=== PATIENT | male | born 1965 | race Caucasian/White ===

== ENCOUNTER 2018-04-17 16:17 | Emergency (ER) | payer SELFPAY ==
--- NOTE | 2018-04-17 16:37 | ER Document Report ---
ED Medical Screen (RME) - General Chief Complaint: Breathing Difficulty Stated Complaint: DIFFICULTY BREATHING Time Seen by Provider: 04/17/18 16:35 Mode of Arrival: Wheelchair Information source: Patient, Relative TRAVEL OUTSIDE OF THE [place] IN LAST 30 DAYS: No - HPI Patient complains to provider of: sob Onset: Other - pt with onset of sob and dyspnea for the past several days with exacerbation this am. Denies CP - Related Data Allergies/Adverse Reactions: No Known Allergies Allergy (Unverified 04/17/18 16:22) Physical Exam - Vital signs Vitals: Temp Pulse Resp BP Pulse Ox 97.8 F 109 H 32 H 121/80 95 04/17/18 16:23 04/17/18 16:23 04/17/18 16:23 04/17/18 16:23 04/17/18 16:23 Course - Vital Signs Vital signs: Temp Pulse Resp BP Pulse Ox 97.8 F 109 H 32 H 121/80 95 04/17/18 16:23 04/17/18 16:23 04/17/18 16:23 04/17/18 16:23 04/17/18 16:23
[2018-04-17 17:16] LABS: ABSOLUTE LYMPHOCYTES (AUTO) 0.9 10^3/uL (0.5-4.7); ABSOLUTE MONOCYTES (AUTO) 0.8 10^3/uL (0.1-1.4); BASOPHILS % (AUTO) 0.5 % (0-2); EOSINOPHILS % (AUTO) 0.3 % (0-6); HEMATOCRIT 45.8 % (37.9-51.0); HEMOGLOBIN 15.2 g/dL (13.5-17.0); LYMPHOCYTES % (AUTO) 9.9 % (13-45); MEAN CORPUSCULAR HGB CONC 33.2 g/dL (32.0-36.0); MEAN CORPUSCULAR VOLUME 81 fl (80-97); MONOCYTES % (AUTO) 8.8 % (3-13); PLATELET COUNT 178 10^3/uL (150-450); RED BLOOD COUNT 5.63 10^6/uL (4.35-5.55); RED CELL DISTRIBUTION WIDTH 17.2 % (11.5-14.0); SEGMENTED NEUTROPHILS % (AUTO) 80.5 % (42-78); TOTAL CELLS COUNTED % (AUTO) 100 %; WHITE BLOOD COUNT 8.7 10^3/uL (4.0-10.5)
--- NOTE | 2018-04-17 17:18 | RADIOLOGY REPORT (SQ) ---
EXAM DESCRIPTION: CHEST 2 VIEWS COMPLETED DATE/TIME: 04/17/2018 5:09 pm REASON FOR STUDY: sob COMPARISON: None. EXAM PARAMETERS: NUMBER OF VIEWS: two views TECHNIQUE: Digital Frontal and Lateral radiographic views of the chest acquired. RADIATION DOSE: NA LIMITATIONS: none FINDINGS: LUNGS AND PLEURA: Small bilateral pleural effusions. No focal consolidation. No pneumoth orax. MEDIASTINUM AND HILAR STRUCTURES: No masses or contour abnormalities. HEART AND VASCULAR STRUCTURES: Mild cardiomegaly. Central pulmonary vasculature is prominent. BONES: No acute findings. HARDWARE: Left-sided single lead AICD. Postsurgical changes of the mediastinum. OTHER: No other significant finding. IMPRESSION: 1. Mild cardiomegaly with mild pulmonary vascular congestion. 2. Small bilateral pleural effusions. TECHNICAL DOCUMENTATION: JOB ID: [id number] [employer]- All Rights Reserved Reading location - IP/workstation name: [email or web address]
[2018-04-17 17:28] LABS: ALANINE AMINOTRANSFERASE 36 U/L (21-72); ALBUMIN 4.3 g/dL (3.5-5.0); ALKALINE PHOSPHATASE 76 U/L (38-126); ANION GAP 9 (5-19); ASPARTATE AMINO TRANSFERASE 49 U/L (17-59); BILIRUBIN,DIRECT 0.6 mg/dL (0.0-0.4); BILIRUBIN,TOTAL 1.6 mg/dL (0.2-1.3); BLOOD UREA NITROGEN 14 mg/dL (7-20); CALCIUM 9.1 mg/dL (8.4-10.2); CARBON DIOXIDE 29 mmol/L (22-30); CHLORIDE 98 mmol/L (98-107); CREATINE KINASE 526 U/L (55-170); GLUCOSE 150 mg/dL (75-110); POTASSIUM 4.1 mmol/L (3.6-5.0); SODIUM 135.5 mmol/L (137-145); TOTAL PROTEIN 6.5 g/dL (6.3-8.2)
[2018-04-17 17:40] LABS: CREATINE KINASE MB 4.37 ng/mL (<4.55); TROPONIN I 0.022 ng/mL
[2018-04-17] MEDS ORDERED: FUROSEMIDE INJ/PF 40 MG/4 ML SDV IV ONE (18:56)
--- NOTE | 2018-04-17 19:00 | ER Document Report ---
ED General - General Chief Complaint: Breathing Difficulty Stated Complaint: DIFFICULTY BREATHING Time Seen by Provider: 04/17/18 16:35 Mode of Arrival: Wheelchair TRAVEL OUTSIDE OF THE [place] IN LAST 30 DAYS: No - HPI Notes: Patient is a 52-year-old male that presents to the emergency department for chief complaint of shortness of breath and edema. Patient has history of congestive heart failure and is in transition between insurance and primary care doctors. He states that he has not had his Lasix for the last few months. He has been taking some here and there but not con sistently. His last dose was a friend's 20 mg tablet that he took 3 or 4 days ago. Patient reports feeling increased edema in his lower extremities and abdomen. He reports shortness of breath that is worse when he lays flat. He denies any chest pain, fever, chills, palpitations, nausea and vomiting. He does state that his abdomen is uncomfortable because of the amount of swelling. Past Medical History: CHF, factor V Leiden, diabetes, hypertension, CAD Past Surgical History: Reviewed in chart Social History: Denies drugs alcohol and tobacco Family History: Reviewed and noncontributory for presenting illness Allergies: Reviewed, see documented allergy list. REVIEW OF SYSTEMS: CONSTITUTIONAL : No fever No chills No diaphoresis No recent illness EENT: No vision changes No congestion No sore throat CARDIOVASCULAR: No chest pain No palpitations RESPIRATORY: shortness of breath No cough difficulty breathing GASTROINTESTINAL: abdominal pain No nausea No vomiting No diarrhea GENITOURINARY: No dysuria No hematuria No difficulty urinating MUSCULOSKELETAL: No back pain No leg pain No arm pain SKIN: No rashes No lesions LYMPHATIC: No swollen, enlarged glands. NEUROLOGICAL: No lightheadedness No headache No weakness No paresthesias PSYCHIATRIC: No anxiety No depression PHYSICAL EXAMINATION: Vital signs reviewed, nursing noted reviewed. GENERAL: Well-appearing, obese and in no acute distress. HEAD: Atraumatic, normocephalic. EYES: Eyes appear normal, extraocular movements intact, sclera anicteric, conjunctiva are normal. ENT: nares patent, oropharynx clear without exudates. Moist mucous membranes. NECK: Normal range of motion, supple without lymphadenopathy LUNGS: Breath sounds rhonchorous to auscultation bilaterally and equal. Mild tachypnea, no accessory muscle use, no respiratory distress HEART: Tachycardic and regular rhythm without murmurs ABDOMEN: Distended, positive fluid wave, soft, nontender. No rebound, guarding, or rigidity. EXTREMITIES: Nontender. +2 pitting edema bilateral lower extremities NEUROLOGICAL: No focal neurological deficits. Moves all extremities spontaneously Motor and sensory grossly intact on exam. PSYCH: Normal mood, normal affect. SKIN: Warm, Dry, normal turgor, no rashes or lesions noted on exposed skin - Related Data Allergies/Adverse Reactions: No Known Allergies Allergy (Unverified 04/17/18 16:22) Past Medical History - General Information source: Patient, Relative - Social History Smoking Status: Current Every Day Smoker Frequency of alcohol use: None Drug Abuse: None Family History: Reviewed & Not Pertinent Patient has suicidal ideation: No Patient has homicidal ideation: No - Past Medical History Cardiac Medical History: Reports: Hx Heart Attack - x3-4, Hx Hypercholesterolemia, Hx Hypertension Endocrine Medical History: Reports: Hx Diabetes Mellitus Type 2 Renal/ Medical History: Denies: Hx Peritoneal Dialysis Past Surgical History: Reports: Hx Open Heart Surgery - x2 stents, x1 CABG Physical Exam - Vital signs Vitals: Temp Pulse Resp BP Pulse Ox 97.8 F 109 H 32 H 121/80 95 04/17/18 16:23 04/17/18 16:23 04/17/18 16:23 04/17/18 16:23 04/17/18 16:23 Course - Re-evaluation Re-evalutation: 04/17/18 18:59 Vitals reviewed. Nursing notes reviewed. Patient has fluid overload status secondary to noncompliance with his home Lasix. He will be given IV Lasix in the ED. He is oxygenating at 96% on room air. He does have mild tachypnea with no accessory muscle use or respiratory distress. His chest x-ray shows bilateral pleural effusions and pulmonary edema. Patient has a slightly e levated CK but the remainder of his blood work is unremarkable. 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 He will be reevaluated after Lasix. Delta troponin was ordered and is pending. Laboratory 04/17/18 04/17/18 04/17/18 16:58 16:58 16:58 WBC 8.7 RBC 5.63 H Hgb 15.2 Hct 45.8 MCV 81 MCH 27.0 MCHC 33.2 RDW 17.2 H Plt Count 178 Seg Neutrophils % 80.5 H Lymphocytes % 9.9 L Monocytes % 8.8 Eosinophils % 0.3 Basophils % 0.5 Absolute Neutrophils 7.0 Absolute Lymphocytes 0.9 Absolute Monocytes 0.8 Absolute Eosinophils 0.0 Absolute Basophils 0.0 Sodium 135.5 L Potassium 4.1 Chloride 98 Carbon Dioxide 29 Anion Gap 9 BUN 14 Creatinine 0.70 Est GFR ( Amer) > 60 Est GFR (Non-Af Amer) > 60 Glucose 150 H Calcium 9.1 Total Bilirubin 1.6 H Direct Bilirubin 0.6 H Neonat Total Bilirubin Not Reportable Neonat Direct Bilirubin Not Reportable Neonat Indirect Bili Not Reportable AST 49 ALT 36 Alkaline Phosphatase 76 Creatine Kinase 526 H CK-MB (CK-2) 4.37 Troponin I 0.022 NT-Pro-B Natriuret Pep 2480 H Total Protein 6.5 Albumin 4.3 Chest X-Ray 04/17/18 16:36 IMPRESSION: 1. Mild cardiomegaly with mild pulmonary vascular congestion. 2. Small bilateral pleural effusions. 04/17/18 20:31 Patient reevaluated. He is reporting that he currently feels better than he has in weeks. He has failed a bedside urinal two th[address] full which she states is more urine than he has been able to produce in a while. Patient is oxygenating currently at 97% on room air and is in no respiratory distress. He does still have a lot of fluid overload. His rhonchi have improved. Patient will be given Lasix 40 mg daily which was his home medication that will be refilled. He will also get a refill of his Eliquis. He was told to call tomorrow to establish with a primary care provider who can continue his medications. Patient will return to the emergency room for any new or worsening symptoms. He is stable at discharge. - Vital Signs Vital signs: Temp Pulse Resp BP Pulse Ox 97.8 F 104 H 20 112/81 95 04/17/18 16:23 04/17/18 18:39 04/17/18 18:39 04/17/18 18:39 04/17/18 18:39 - Laboratory Result Diagrams: 04/17/18 16:58 04/17/18 16:58 Laboratory results interpreted by me: 04/17/18 04/17/18 04/17/18 16:58 16:58 16:58 RBC 5.63 H RDW 17.2 H Seg Neutrophils % 80.5 H Lymphocytes % 9.9 L Sodium 135.5 L Glucose 150 H Total Bilirubin 1.6 H Direct Bilirubin 0.6 H Creatine Kinase 526 H NT-Pro-B Natriuret Pep 2480 H - EKG Interpretation by Me Additional EKG results interpreted by me: 04/17/18 19:00 Interpreted by myself [id number]: Sinus tachycardia, rate 105, incomplete left bundle branch block, inferior Q waves suggesting old VA, no STEMI Discharge - Discharge Clinical Impression: Peripheral edema CHF exacerbation Qualifiers: Heart failure type: unspecified Qualified Code(s): I50.9 - Heart failure, unspecified Condition: Stable Disposition: HOME, SELF-CARE Instructions: Congestive Heart Failure ([facility]), Family Physicians / Practices Additional Instructions: Please return to the emergency department if you have any worsening, or concern of your symptoms. Please return to the emergency department if you develop chest pain, difficulty breathing, severe abdominal pain, or ongoing vomiting. Please follow-up with your primary care physician in 2-3 days and any other recommended physicians. If prescribed, take all medications as directed. If you have any questions or concerns do not hesitate to return the emergency department for evaluation. Prescriptions: Apixaban [Eliquis 5 mg Tablet] 5 mg PO BID #14 tablet Furosemide [Lasix 40 mg Tablet] 40 mg PO QAM #30 tablet Referrals: [facility] [Provider Group] - Follow up in 3-5 days
--- NOTE | 2018-04-17 20:37 | EKG REPORT ---
SEVERITY:- ABNORMAL ECG - SINUS TACHYCARDIA PAIRED VENTRICULAR PREMATURE COMPLEXES PROBABLE LEFT ATRIAL ABNORMALITY INCOMPLETE LEFT BUNDLE BRANCH BLOCK PROBABLE INFERIOR INFARCT, OLD CONSIDER ANTERIOR INFARCT : Confirmed by: Manuel Amezquita MD 17-Apr-2018 20:36:47
[2018-04-17 21:02] VITALS: BP 114/73
== END 2018-04-17 21:05 | disposition home or self-care (01) ==
LOC: ER 16:17
DX: I11.0 Hypertensive heart disease with heart failure (principal); I50.1 Left ventricular failure, unspecified; T50.1X6A Underdosing of loop [high-ceiling] diuretics, initial encounter; Z91.128 Patient's intentional underdosing of medication regimen for other reason; Z91.14 Patient's other noncompliance with medication regimen; I25.10 Atherosclerotic heart disease of native coronary artery without angina pectoris; E11.9 Type 2 diabetes mellitus without complications; R00.0 Tachycardia, unspecified; F17.200 Nicotine dependence, unspecified, uncomplicated; R74.8 Abnormal levels of other serum enzymes; I44.7 Left bundle-branch block, unspecified
CPT/HCPCS: 93005; 99285; 96374; 36415; 82553; 82550; 85025; 80053; 84484; 83880; 71046; 93010; J1940